=== PATIENT | female | born 1995 | race Caucasian/White ===

== ENCOUNTER 2022-10-20 09:42 | Outpatient (REF) | payer OTHER, SELFPAY ==
[2022-10-20 10:34] LABS: Hematocrit 41.1 % (37.0-47.0); Hemoglobin 13.7 g/dl (12.0-16.0); Mean Corpuscular HGB Conc 33.3 g/dl (31.0-35.0); Mean Corpuscular Hemoglobin 31.1 pg (27.0-33.0); Mean Corpuscular Volume 93.2 fL (80.0-98.0); Mean Platelet Volume 11.6 fL (9.4-12.3); Platelet Count 265 X10*3/uL (160-400); Red Blood Count 4.41 X10*6/uL (4.20-5.50); Red Cell Distribution Width 11.6 % (11.0-16.0); White Blood Count 6.1 X10*3/uL (4.8-10.8)
[2022-10-20 11:25] LABS: Alanine Aminotransferase 15 U/L (0-31); Albumin Level 4.4 g/dL (3.5-5.0); Alkaline Phosphatase 56 U/L (39-117); Anion Gap 11 (12-20); Aspartate Amino Transferase 20 U/L (5-31); Bilirubin Total 0.6 mg/dL (0.0-1.0); Blood Urea Nitrogen 10 mg/dL (9-16); Calcium 9.1 mg/dL (8.4-10.2); Carbon Dioxide 27 mmol/L (22-29); Chloride 106 mmol/L (96-108); Cholesterol 195 mg/dL; Estimated Glomerular Filt Rate > 60; Glucose Fasting 96 mg/dL (60-99); HDL Cholesterol 55 mg/dL; LDL Cholesterol Calculated 129 mg/dl; Potassium 4.6 mmol/L (3.3-5.1); Sodium 139 mmol/L (135-145); Total Protein 6.8 g/dL (6.5-8.0); Triglycerides 55 mg/dL
[2022-10-20 11:44] LABS: TSH reflex Free T4 1.04 uIU/mL (0.32-4.0)
== END 2022-10-20 09:43 | disposition home or self-care (01) ==
LOC: HO.LAB 09:42
PROVIDERS: PCP Hospitalist; Visit Provider Hospitalist
DX: Z00.00 Encounter for general adult medical examination without abnormal findings (principal); N92.0 Excessive and frequent menstruation with regular cycle; E66.3 Overweight; Z68.28 Body mass index [BMI] 28.0-28.9, adult; Z83.2 Family history of diseases of the blood and blood-forming organs and certain disorders involving the immune mechanism
CPT/HCPCS: 36415; 80053; 80061; 84443; 85027

== ENCOUNTER 2023-01-13 09:10 | Outpatient (REF) | payer OTHER, SELFPAY ==
[2023-01-13 15:25] LABS: CT PCR NOT DETECTED (Not Detect.); NG PCR NOT DETECTED (Not Detect.)
[2023-01-14 11:11] LABS: BV Int Neg Control Negative (Negative); BV Int Pos Control Positive (Positive)
== END 2023-01-13 09:11 | disposition home or self-care (01) ==
LOC: HO.LNP 09:10
PROVIDERS: PCP Hospitalist; Visit Provider Advanced Practice Midwife
DX: Z01.419 Encounter for gynecological examination (general) (routine) without abnormal findings (principal); Z20.2 Contact with and (suspected) exposure to infections with a predominantly sexual mode of transmission
CPT/HCPCS: 0353U; 87480; 87510; 87660; 88142

== ENCOUNTER 2023-09-13 08:29 | Outpatient (AMB) | payer OTHER, SELFPAY ==
[2023-09-13 08:37] VITALS: BP 120/72; PULSE 80; O2SAT 98; BMI 29.9
--- NOTE | 2023-09-13 08:37 | MHC.PC.OV ---
Vital Signs 09/13/23 08:37 Height 5 ft 5 in Weight 179 lb 8 oz BMI 29.9 BP 120/72 Blood Pressure Location Lt brachial Position Sitting Pulse 80 Pulse Source Pulse Oximeter Pulse Oximetry (%) 98 Oxygen Delivery Method Room Air Intake Visit Reasons: NURY from Kath Intake Note: Patient is here today for her physical. Allergies No Known Allergies Allergy (Verified 09/13/23 08:56) Medication List - Last Reconciled 09/13/23 by Angelica aPrada, [facility]- norgestimate-ethinyl estradiol 0.18/0.215/0.25 mg-35 mcg (28) (Tri-Estarylla) 1 tab PO DAILY Tobacco use date assessed: 09/13/23 Dental Screening Dental Screen Date: 09/13/23 Did you have a dental visit in the last 12 months?: Yes Did you have a dental problem in the last 6 months where you did not have access to dental care?: No Was dental information given to patient?: Patient has dentist HPI HPI Comments History of Present Illness Details 28-year-old female with PTSD, ? ADHD, JAIRO, lives w/ boyfriend. 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 q6 months Vision- no corrective lenses or issues Sleep - hard time staying asleep; tired a lot; not effecting QOL Diet: relatively well. Loves snacking. Exercise: walks dog QD, Gym 3-4 times/week Surgeries: None Specialist: Counselor Family hx: Dad - cardiac arrest 51, DM Paternal aunt - breast cancer dx around age 45. + BRCA Pt reports she was tested for this and was negative. PGF of cardiac arrest 47 PGM , DM, leukemia, smoker Siblings: Older brother 40 alive and well Sister 38 alive recovery from heroin, Hep c treated Brother 33 alive and well MGM 93, hypothyroid MGF unknown reason Mom healthy active, HTN Uncle - cirrhosis d/t etoh Uncle prostate CA alive PHQ and JAIRO are + relative to situational circumstances. Has counselor, feels well supported. Has never been on meds. 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 1. Little interest or pleasure in doing things: several days 2. Feeling down, depressed, or hopeless: several days 3. Trouble falling or staying asleep, or sleeping too much: several days 4. Feeling tired or having little energy: not at all 5. Poor appetite or overeating: not at all 6. Feeling bad about yourself - or that you are a failure or have let yourself or your family down: not at all 7. Trouble concentrating on things, such as reading the newspaper or watching television: nearly every day 8. Moving or speaking so slowly that other people could have noticed. Or the opposite - being so fidgety or restless that you have been moving around a lot more than usual: not at all 9. Thoughts that you would be better off or of hurting yourself in some way: not at all Total score: 6 Depression Screening Interpretation: Positive Depression Screening Done: Yes 93288 - PHQ-9 Billing: Yes Source: Developed by Drs. Ulysses Millan, Olga Lidia Cleveland, Todd Capellan and colleagues, with an educational rachel from [employer]. Thrive Questionnaire Date Thrive assessed: 09/13/23 I am a: Patient What is your living situation today?: I have a steady place to live Within the past 12 months, did the food you bought not last and you didn't have the money to get more?: Never true Within the past 12 months, did you worry whether your food would run out before you got money to buy more?: Never true Do you have trouble paying for medicines?: No Do you have trouble getting transportation to medical appointments?: No Do you have trouble paying your heating and electricity bill?: No Do you have trouble taking care of your child, family member or friend?: No Do you have trouble with day-to-day activities such as bathing, preparing meals, shopping, managing finances, etc.?: No Are you currently unemployed and looking for a job?: No Are you interested in more education?: No THRIVE Score: 0 AUDIT C Alcohol Use Questionnaire (AUDIT-C) 1. How often do you have a drink containing alcohol?: Monthly or less 2. How many drinks containing alcohol do you have on a typical day when you are drinking?: 1 or 2 3. How often do you have six or more drinks on one occasion?: Never Total Score: 1 Score Reviewed/Action Taken: Yes JAIRO-7 AMB Questionnaire JAIRO-7 Date JAIRO - 7 assessed: 09/13/23 Feeling nervous, anxious, or on edge: 1 = Several days Not being able to stop or control worryin = Several days Worrying too much about different things: 1 = Several days Trouble relaxin = Several days Being so restless that it is hard to sit still: 0 = Not at all Becoming easily annoyed or irritable: 0 = Not at all Feeling afraid as if something awful might happen: 0 = Not at all Total JAIRO-7 score (0-4 normal; 5-9 mild; 10-14 moderate; 15-21 severe): 4 Source: Developed by Drs. Ulysses Millan, Olga Lidia Cleveland, Todd Capellan and colleagues, with an educational rachel from [employer]. JAIRO-7 Assessment Billing JAIRO-7 Assessment Tool: JAIRO-7 Assessment 55898 Review of Systems Const Details: Constitutional: Denies fever. Skin: Denies rash. Eye: Denies eye pain. ENMT: Denies sore throat and nasal congestion. Respiratory: Denies shortness of breath and cough. Gastrointestinal: Denies nausea, vomiting or abdominal pain. Cardiovascular: Denies chest pain and syncope. Genitourinary: Denies dysuria. Musculoskeletal: Denies back pain and extremity pain. Neurologic: Denies headaches, confusion, and weakness. Psychiatric: Denies suicidal thoughts and substance abuse. Allergy/ Immunologic: Denies impaired immunity. Physical exam (Primary Care) Vital Signs: Last Vital Signs Pulse 80 09/13/23 08:37 BP 120/72 09/13/23 08:37 Pulse Ox 98 09/13/23 08:37 Oxygen Delivery Method Room Air 09/13/23 08:37 BMI result Body Mass Index 29.9 Tobacco/Smoking Status: Tobacco use Status Tobacco use date assessed 09/13/23 09/13/23 08:44 Patient Tobacco Use Status Never used Tobacco 09/13/23 08:44 e-Cigarette/Vaping Use Never Used 09/13/23 08:44 PHQ-9: PHQ-9 Score PHQ-9: Total score 6 09/13/23 08:47 Depression Screening Interpretation: Positive Thrive Assessment: Date of Thrive Assessment Date Thrive assessed 09/13/23 09/13/23 08:44 Const Other: General: Well developed, well nourished, in no acute distress. Appears stated age. Head: Normocephalic, atraumatic. Eyes: Pupils are equal, round and reactive to light and accommodation. Conjunctivae are clear. Vision grossly normal. Ears: TMs clear AU, EACS WNL Nose: Patent, without discharge. Mouth: There are no ulcers or lesions noted. No inflammation, no post nasal drip, no plaques nor exudates. Neck: Supple, no adenopathy or thyromegaly. Lungs: Clear to auscultation bilaterally. No rales, rhonchi or wheeze noted. Good air flow in all mathis. Heart: Regular rate and rhythm. No murmurs, click, rubs or gallops are noted. Abdomen: Bowel sounds present in all quadrants. The abdomen is soft, nontender, with no masses or organomegaly noted. No hernias are noted. Musculoskeletal: Joints are nontender, without swelling, redness, or effusions. Range of motion is observed to be normal. Pulses: Peripheral pulses are equal and palpable bilaterally. Extremities: No clubbing, cyanosis nor edema is noted. Neurologic: Gait and station normal. Cranial Nerves 2-12 intact. Motor strength grossly symmetrical and intact. No sensory loss. Balance normal. Skin: No rashes, ulcers, or lesions noted. Turgor is good. Skin color is good. Hair and nails are without abnormalities. Psych: Normal eye contact, affect and mood appropriate, and normal interactions. Patient is alert and appropriate to context. Extremities: No clubbing, cyanosis or edema. Assessment and Plan Assessment & Plan (1) Normal physical exam: Code(s): Z00.00 - Encounter for general adult medical examination without abnormal findings (2) Laboratory exam ordered as part of routine general medical examination: Code(s): Z00.00 - Encounter for general adult medical examination without abnormal findings Orders: Orders Lipid Panel Today Z00.00 - Encounter for general adult medical examination without abnormal findings TSH reflex Free T4 Today Z00.00 - Encounter for general adult medical examination without abnormal findings Comprehensive Farnam. Panel Fast Today Z00.00 - Encounter for general adult medical examination without abnormal findings Vitamin D 1,25 dihydroxy Today Z00.00 - Encounter for general adult medical examination without abnormal findings Patient Instructions: Health screenings for women ages 18 to 39 You should visit your health care provider from time to time, even if you are healthy. The purpose of these visits is to: Screen for medical issues Assess your risk for future medical problems Encourage a healthy lifestyle Update vaccinations and other preventive care services Help you get to know your provider in case of an illness Information Even if you feel fine, you should still see your provider for regular checkups. These visits can help you avoid problems in the future. For example, the only way to find out if you have high blood pressure is to have it checked regularly. High blood sugar and high cholesterol levels also may not have any symptoms in the early stages. A simple blood test can check for these conditions. There are specific times when you should see your provider or receive specific health screenings. The [place] Preventive Services Task Force publishes a list of recommended screenings. Below are screening guidelines for women ages 18 to 39. BLOOD PRESSURE SCREENING Your blood pressure should be checked at least once every 3 to 5 years if: Your blood pressure is in the normal range (top number less than 120 mm Hg and bottom number less than 80 mm Hg) You don't have risk factors for high blood pressure Ask your provider if you need your blood pressure checked more often if: The top number is 120 to 129 mm Hg or the bottom number is 70 to 79 mm Hg You have diabetes, heart disease, kidney problems, are overweight, or have certain other health conditions You have a first-degree relative with high blood pressure You are Black You had high blood pressure during a If the top number is 130 mm Hg or greater or the bottom number is 80 mm Hg or greater, this is considered stage 1 hypertension. Schedule an appointment with your provider to learn how you can reduce your blood pressure. Watch for blood pressure screenings in your area. Ask your provider if you can stop in to have your blood pressure checked. BREAST CANCER SCREENING Experts do not agree about the benefits of breast self-exams in finding breast cancer or saving lives. Talk to your provider about what is best for you. A screening mammogram is not recommended for most women under age 40. Your provider may discuss and recommend mammograms, MRI scans, or ultrasounds if you have an increased risk for breast cancer, such as: A mother or sister who had breast cancer at a young age (most often starting screening earlier than the age the close relative was diagnosed) You carry a high-risk genetic marker CERVICAL CANCER SCREENING Cervical cancer screening should start at age 21 years unless your provider advises otherwise. After the first test: Women ages 21 through 29 should have a Pap test every 3 years. Exoprts do not agree on whether HPV testing is recommended for this age group. Women ages 30 through 65 should be screened with either a Pap test every 3 years or the HPV test every 5 years or both tests every 5 years (called cotesting ). Women who have been treated for precancer (cervical dysplasia) should continue to have Pap tests for 20 years after treatment or until age 65, whichever is longer. If you have had your uterus and cervix removed (total hysterectomy), and you have not been diagnosed with cervical cancer or precancer (high grade cervical neoplasia), you do not need cervical cancer screening. CHOLESTEROL SCREENING Cholesterol screening should begin at: Age 45 for women with no known risk factors for coronary heart disease Age 20 for women with known risk factors for coronary heart disease Repeat cholesterol screening should take place: Every 5 years for women with normal cholesterol levels More often if changes occur in lifestyle (including weight gain and diet) More often if you have diabetes, heart disease, kidney problems, or certain other conditions DIABETES SCREENING You should be screened for diabetes starting at age 35 and then repeated every 3 years if you have no risk factors for diabetes. Screening may need to start earlier and be repeated more often if you have other risk factors for diabetes, such as: You have a first degree relative with diabetes. You are overweight or have obesity. You have high blood pressure, prediabetes, or a history of heart disease. Screening for diabetes should be done if you are planning to become and you are overweight and have other risk factors such as high blood pressure. DENTAL EXAM Go to the dentist once or twice every year for an exam and cleaning. Your dentist will evaluate if you need more frequent visits. EYE EXAM Have an eye exam every 5 to 10 years before age 40. If you have vision problems, have an eye exam every 2 years or more often if recommended by your provider. You should have an eye exam that includes an examination of your retina (back of your eye) at least every year if you have diabetes. IMMUNIZATIONS Commonly needed vaccines include: Flu shot: get one every year. COVID-19 vaccine: ask your provider what is best for you. Tetanus-diphtheria and acellular pertussis (Tdap) vaccine: have one at or after age 19 as one of your tetanus-diphtheria vaccines if you did not receive it as an adolescent. Tetanus-diphtheria: have a booster (or Tdap) every 10 years. Varicella vaccine: receive 2 doses if you never had chickenpox or the varicella vaccine. Hepatitis B vaccine: receive 2, 3, or 4 doses, depending on your exact circumstances. Measles, mumps, and rubella (MMR) vaccine: receive 1 to 2 doses if you are not already immune to MMR. Your provider can tell you if you are immune. Ask your provider about the human papillomavirus (HPV) vaccine if: You have not received the HPV vaccine in the past You have not completed the full vaccine series (you should catch up on this shot) Ask your provider if you should receive other immunizations if you have certain health problems that increase your risk for some diseases such as pneumonia. INFECTIOUS DISEASE SCREENING Women who are sexually active should be screened for chlamydia and gonorrhea up until age 25. Women 25 years and older should be screened for chlamydia and gonorrhea if at high risk. Screening for hepatitis C: All adults ages 18 to 79 should get a one-time test for hepatitis C. people should be screened at every . Screening for human immunodeficiency virus (HIV): All people ages 15 to 65 should get a one-time test for HIV. Depending on your lifestyle and medical history, you may also need to be screened for infections such as syphilis and HIV, as well as other infections. PHYSICAL EXAM All adults should visit their provider from time to time, even if they are healthy. The purpose of these visits is to: Screen for disease Assess your risk of future medical problems Encourage a healthy lifestyle Update your vaccinations and other preventive care services Maintain a relationship with a provider in case of an illness Your height, weight, and BMI should be checked at every exam. During your exam, your provider may ask you about: Depression and anxiety Diet and exercise Alcohol and tobacco use Safety issues, such as using seat belts, smoke detectors, and intimate partner violence Your medicines and risk for interactions SKIN SELF-EXAM Your provider may check your skin for signs of skin cancer, especially if you're at high risk, such as if you: Have had skin cancer before Have close relatives with skin cancer Have a weakened immune system OTHER SCREENING Talk with your provider about colon cancer screening if you have a strong family history of colon cancer or polyps, or if you have had inflammatory bowel disease or polyps yourself. Routine bone density screening of women under 40 is not recommended. Coding Level of Care Code Est Pt Prev Care 18-39y(98575) Diagnoses Normal physical exam Z00.00 Laboratory exam ordered as part of routine general medical examination Z00.00 Additional Codes JAIRO-7 Assessment Billing - JAIRO-7 Assessment Tool: JAIRO-7 Assessment 91576 ([id number])
== END 2023-09-13 09:16 | disposition home or self-care (01) ==
PROVIDERS: PCP Nurse Practitioner Family; Visit Provider Nurse Practitioner Family
DX: Z00.00 Encounter for general adult medical examination without abnormal findings (principal)
CPT/HCPCS: 99395

== ENCOUNTER 2023-12-21 09:25 | Outpatient (REF) | payer OTHER, SELFPAY ==
[2023-12-21 12:00] LABS: Alanine Aminotransferase 13 U/L (0-31); Albumin Level 4.1 g/dL (3.5-5.0); Alkaline Phosphatase 49 U/L (39-117); Anion Gap 12 (12-20); Aspartate Amino Transferase 17 U/L (5-31); Bilirubin Total 0.2 mg/dL (0.0-1.0); Blood Urea Nitrogen 12 mg/dL (9-16); Calcium 9.5 mg/dL (8.4-10.2); Carbon Dioxide 24 mmol/L (22-29); Chloride 109 mmol/L (96-108); Cholesterol 176 mg/dL (<200); Estimated Glomerular Filt Rate > 60; Glucose Fasting 100 mg/dL (60-99); HDL Cholesterol 54 mg/dL (>40); LDL Cholesterol Calculated 109 mg/dL (<100); Potassium 4.4 mmol/L (3.3-5.1); Sodium 141 mmol/L (135-145); Triglycerides 68 mg/dL (<150)
[2023-12-21 12:24] LABS: TSH reflex Free T4 1.06 uIU/mL (0.32-4.0)
[2023-12-25 13:38] LABS: VITAMIN D (1,25 OH) D3 69 pg/mL; Vit D (1,25-Dihydroxy) Total 69 pg/mL (18-72); Vitamin D (1,25 OH) D2 <8 pg/mL
== END 2023-12-21 09:26 | disposition home or self-care (01) ==
LOC: HO.WFDLDS 09:25
PROVIDERS: Visit Provider Nurse Practitioner Family
DX: Z00.00 Encounter for general adult medical examination without abnormal findings (principal)
CPT/HCPCS: 36415; 80053; 80061; 82652; 84443

== ENCOUNTER 2024-02-08 09:24 | Outpatient (REF) | payer OTHER, SELFPAY ==
[2024-02-09 05:58] LABS: CT PCR NOT DETECTED (Not Detect.); NG PCR NOT DETECTED (Not Detect.)
[2024-02-09 09:12] LABS: Bacterial Vaginosis PCR NEGATIVE (Negative); Candida Group PCR NOT DETECTED (Not Detect); Candida glab krusei PCR NOT DETECTED (Not Detect); Trichomonas vaginalis PCR NOT DETECTED (Not Detect)
== END 2024-02-08 09:25 | disposition home or self-care (01) ==
LOC: HO.LAB 09:24
PROVIDERS: PCP Nurse Practitioner Family; Visit Provider Advanced Practice Midwife
DX: Z01.419 Encounter for gynecological examination (general) (routine) without abnormal findings (principal); N89.8 Other specified noninflammatory disorders of vagina; Z80.3 Family history of malignant neoplasm of breast; Z20.2 Contact with and (suspected) exposure to infections with a predominantly sexual mode of transmission
CPT/HCPCS: 0352U; 87491; 87591

== ENCOUNTER 2024-02-08 09:24 | Outpatient (AMB) | payer OTHER, SELFPAY ==
[2024-02-08 09:27] VITALS: BP 110/62; BMI 30.4
--- NOTE | 2024-02-08 09:27 | MHC.OFFVIS ---
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 Manager Of Procurement Required: No Manager Of Procurement Services: Manager Of Procurement Present Information Interpreted: clinical only Chemical Processing Supervisor: Chemical Processing Supervisor Present Allergies No Known Allergies Allergy (Verified 02/08/24 09:28) Medication List - Last Reconciled 02/08/24 by Inés Fisher CNM norgestimate-ethinyl estradiol 0.18/0.215/0.25 mg-35 mcg (28) (Tri-Estarylla) 1 tab PO DAILY trazodone 50 mg PO BEDTIME PRN Is last menstrual period known: Yes Last menstrual period: 01/25/24 Do you need a note to return to daycare/school/sports/work: No HPI HPI 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 She is on control pills and plans to stay on them for least another year or so she and her fiance her in their house and planning on getting next year and soon after will start their family she has no other health concerns she is working on being as healthy as she can be she met her new primary care provider and has no concerns and recently got full blood work done she still does not smoke or have any unhealthy habits. She has not worried about STDs but after they were offered she did accept vaginal infection screens. She has no symptoms of anything whatsoever. In reviewing her past menstrual history she started her periods very young age 11 or 12 and was bleeding very heavily and lost a lot of blood but them so was put on control pills early and was on them for many years took a break around her 21 for year so and then resume them again. When she was off the pills she cited her periods as being regular coming about every 30 days and lasting 4 days. 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 Cognitive needs: No Hearing needs: No Vision needs: No Female Reproductive History Menstrual Age of Menarche: 11 Duration of menses: 3-5 days Date of last menstrual period: 01/25/24 control method: pills Total pregnancies: 0 Date of last pap smear: 01/17/23 (neg) History of abnormal pap smear: Yes (unsure date, it was a couple of Pap smears ago and it did not require biops) Physical Exam Vital Signs: Last Vital Signs BP 110/62 02/08/24 09:27 BMI result Body Mass Index 30.4 Assessment & Plan Assessment & Plan (1) Counseling for control, oral contraceptives: Code(s): Z30.09 - Encounter for other general counseling and advice on contraception Category: Medical (2) Family history of breast cancer in female: Comment: (?paternal?) Aunt has breast cancer and is BRCA positive. She, her mother and sisters have been screened and are BRCA negative. Code(s): Z80.3 - Family history of malignant neoplasm of breast Category: Medical (3) Screen for sexually transmitted diseases: Code(s): Z11.3 - Encounter for screening for infections with a predominantly sexual mode of transmission Category: Medical (4) Cervical cancer screening: Comment: Patient states she had abnormal cells a couple of years ago- no specifics; 01/13/2023 Pap is negative. Code(s): Z12.4 - Encounter for screening for malignant neoplasm of cervix Category: Medical (5) Well woman exam with routine gynecological exam: Code(s): Z01.419 - Encounter for gynecological examination (general) (routine) without abnormal findings Category: Medical Plan -----Discussed in this visit the following: healthy balanced diet, regular and consistent exercise, getting recommended health screens, doing the best she can for her particular health concerns, kegel exercises, pap smear screening and followup recommendations, mammography screening and SBE, normal changes in cycles in her life stage--- .---I discussed with pt some of the optimal strategies for planning a , including achieving the best health she can before , including heathy balanced diet, exercise, wt loss to ideal BMI if appropriate, avoiding toxic substances and medications, not smoking, and taking a multivitamin w folic acid daily. Any specific health concerns should be managed before seeking pregancy, including emotional and relationship and support readiness before embarking on , including being in the best possible health beforehand.. In addition I reviewed normal cycles, fertility awareness and signs of ovulation, and stopping the control pills when she and her fiance are ready to start trying to get and achieve when she feel ready. For now she is going to continue on the control pills and I renewed them for another year. We will see her next year. She is a long-term pill use her and aware of any concerns Also. discussed options care and I do recommend that when she does get that she initiate care from the start with what ever group she intends to stay with to establish a relationship and be able to feel comfortable asking all her questions and discussed birthing plans etc. she lives in [place] so her options most likely would include [facility] in [place] and [facility]. it would be quite a drive to get to the other facilities. Medications: Refilled norgestimate-ethinyl estradiol 0.18/0.215/0.25 mg-35 mcg (28) (Tri-Estarylla) 1 tab PO DAILY 84 tabs 4RF Coding Level of Care Code Est Pt Prev Care 18-39y(13306) Diagnoses Counseling for control, oral contraceptives Z30.09 Family history of breast cancer in female Z80.3 Screen for sexually transmitted diseases Z11.3 Cervical cancer screening Z12.4 Well woman exam with routine gynecological exam Z01.419
== END 2024-02-08 10:03 | disposition home or self-care (01) ==
LOC: HO.HWSM 09:24
PROVIDERS: PCP Nurse Practitioner Family; Visit Provider Advanced Practice Midwife
DX: Z01.419 Encounter for gynecological examination (general) (routine) without abnormal findings (principal); Z30.09 Encounter for other general counseling and advice on contraception; Z80.3 Family history of malignant neoplasm of breast
CPT/HCPCS: 99395

== ENCOUNTER 2024-09-17 07:55 | Outpatient (AMB) | payer OTHER, SELFPAY ==
[2024-09-17 08:08] VITALS: BP 110/70; PULSE 80; RESP 16; TEMP 36.6; O2SAT 98; BMI 29.6
--- NOTE | 2024-09-17 08:08 | MHC.PC.OV ---
Vital Signs 09/17/24 08:08 Height 5 ft 5 in Weight 178 lb BMI 29.6 BP 110/70 Blood Pressure Location Rt brachial Position Sitting Respiration 16 Pulse 80 Pulse Source Pulse Oximeter Temp 97.9 F Temp Source Oral Pulse Oximetry (%) 98 Intake Visit Reasons: CPE Allergies No Known Allergies Allergy (Verified 09/17/24 08:12) Medication List - Last Reconciled 09/17/24 by Angelica Parada, [facility]- norgestimate-ethinyl estradiol 0.18/0.215/0.25 mg-35 mcg (28) (Tri-Estarylla) 1 tab PO DAILY propranolol 20 mg PO DAILY trazodone 50 mg PO BEDTIME PRN Tobacco use date assessed: 09/17/24 Dental Screening Dental Screen Date: 09/17/24 Did you have a dental visit in the last 12 months?: Yes Did you have a dental problem in the last 6 months where you did not have access to dental care?: No Was dental information given to patient?: Patient has dentist HPI HPI Comments History of Present Illness Details 29-year-old female with PTSD, ? 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 Health maintenance Pap smear 01/13/2023 within normal limits 02/2024 Vaccines: Flu shot, Tdap in last 10 year Dentist - q6 months Vision- no corrective lenses or issues Sleep - hard time staying asleep; tired a lot; not effecting QOL Diet: normal Exercise: walks dog QD, Gym 3-4 times/week Surgeries: None Specialist: Counselor Family hx: Dad - cardiac arrest 51, DM, melanoma Paternal aunt - breast cancer dx around age 45. + BRCA Pt reports she was tested for this and was negative. PGF of cardiac arrest 47 PGM , DM, leukemia, smoker Siblings: Older brother 40 alive and well Sister 38 alive recovery from heroin, Hep c treated Brother 35 high risk cardiac markers MGM 93, hypothyroid MGF unknown reason Mom healthy active, HTN Uncle - cirrhosis d/t etoh Uncle prostate CA alive PHQ and JAIRO are + relative to situational circumstances. Has counselor, feels well supported. On trazadone; new Rx propranolol not taking @ this time. 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 1. Little interest or pleasure in doing things: several days 2. Feeling down, depressed, or hopeless: several days 3. Trouble falling or staying asleep, or sleeping too much: several days 4. Feeling tired or having little energy: several days 5. Poor appetite or overeating: not at all 6. Feeling bad about yourself - or that you are a failure or have let yourself or your family down: not at all 7. Trouble concentrating on things, such as reading the newspaper or watching television: several days 8. Moving or speaking so slowly that other people could have noticed. Or the opposite - being so fidgety or restless that you have been moving around a lot more than usual: not at all 9. Thoughts that you would be better off or of hurting yourself in some way: not at all Total score: 5 Depression Screening Interpretation: Negative Depression Screening Done: Yes 61246 - PHQ-9 Billing: Yes Source: Developed by Drs. Ulysses Millna, Olga Lidia Cleveland, Todd Capellan and colleagues, with an educational rachel from [employer]. Thrive Questionnaire Date Thrive assessed: 09/17/24 I am a: Patient What is your living situation today?: I have a steady place to live Within the past 12 months, did the food you bought not last and you didn't have the money to get more?: Never true Within the past 12 months, did you worry whether your food would run out before you got money to buy more?: Never true Do you have trouble paying for medicines?: No Do you have trouble getting transportation to medical appointments?: No Do you have trouble paying your heating and electricity bill?: No Do you have trouble taking care of your child, family member or friend?: No Do you have trouble with day-to-day activities such as bathing, preparing meals, shopping, managing finances, etc.?: No Are you currently unemployed and looking for a job?: No Are you interested in more education?: No Please select the resources that you would like help with: None Currently or been in a relationship where the following occur: No concerns reported THRIVE Score: 0 AUDIT C Alcohol Use Questionnaire (AUDIT-C) 1. How often do you have a drink containing alcohol?: 2-4 times a month 2. How many drinks containing alcohol do you have on a typical day when you are drinking?: 1 or 2 3. How often do you have six or more drinks on one occasion?: Less than monthly Total Score: 3 Score Reviewed/Action Taken: Yes JAIRO-7 AMB Questionnaire JAIRO-7 Date JAIRO - 7 assessed: 09/17/24 Feeling nervous, anxious, or on edge: 1 = Several days Not being able to stop or control worryin = Several days Worrying too much about different things: 1 = Several days Trouble relaxin = Not at all Being so restless that it is hard to sit still: 0 = Not at all Becoming easily annoyed or irritable: 0 = Not at all Feeling afraid as if something awful might happen: 1 = Several days Total JAIRO-7 score (0-4 normal; 5-9 mild; 10-14 moderate; 15-21 severe): 4 Source: Developed by Drs. Ulysses Millan, Olga Lidia Cleveland, Todd Capellan and colleagues, with an educational rachel from [employer]. JAIRO-7 Assessment Billing JAIRO-7 Assessment Tool: JAIRO-7 Assessment 64682 Physical exam (Primary Care) Vital Signs: Last Vital Signs Temp 97.9 F 09/17/24 08:08 Pulse 80 09/17/24 08:08 Resp 16 09/17/24 08:08 BP 110/70 09/17/24 08:08 Pulse Ox 98 09/17/24 08:08 BMI result Body Mass Index 29.6 Tobacco/Smoking Status: Tobacco use Status Tobacco use date assessed 09/13/23 09/13/23 08:44 Patient Tobacco Use Status Never used Tobacco 09/13/23 08:44 e-Cigarette/Vaping Use Never Used 09/13/23 08:44 Depression Screening Interpretation: Negative Thrive Assessment: Date of Thrive Assessment Date Thrive assessed 09/13/23 09/13/23 08:44 Currently or been in a relationship where the following occur: No concerns reported Const Other: General: Well developed, well nourished, in no acute distress. Appears stated age. Head: Normocephalic, atraumatic. Eyes: Pupils are equal, round and reactive to light and accommodation. Conjunctivae are clear. Vision grossly normal. Ears: TMs clear AU, EACS WNL Nose: Patent, without discharge. Mouth: There are no ulcers or lesions noted. No inflammation, no post nasal drip, no plaques nor exudates. Neck: Supple, no adenopathy or thyromegaly. Lungs: Clear to auscultation bilaterally. No rales, rhonchi or wheeze noted. Good air flow in all mathis. Heart: Regular rate and rhythm. No murmurs, click, rubs or gallops are noted. Abdomen: Bowel sounds present in all quadrants. The abdomen is soft, nontender, with no masses or organomegaly noted. No hernias are noted. Musculoskeletal: Joints are nontender, without swelling, redness, or effusions. Range of motion is observed to be normal. Pulses: Peripheral pulses are equal and palpable bilaterally. Extremities: No clubbing, cyanosis nor edema is noted. Neurologic: Gait and station normal. Cranial Nerves 2-12 intact. Motor strength grossly symmetrical and intact. No sensory loss. Balance normal. Skin: No rashes, ulcers, or lesions noted. Turgor is good. Skin color is good. Hair and nails are without abnormalities. Psych: Normal eye contact, affect and mood appropriate, and normal interactions. Patient is alert and appropriate to context. Coding Level of Care Code Est Pt Prev Care 18-39y([id number]) Diagnoses Normal physical exam Z00.00 Laboratory exam ordered as part of routine general medical examination Z00.00 Family history of breast cancer in female Z80.3 Mild episode of recurrent major depressive disorder F33.0 Major depression episode severity: mild JAIRO (generalized anxiety disorder) F41.1 Family history of cardiac arrest Z82.49 Family history of skin cancer Z80.8 Additional Codes JAIRO-7 Assessment Billing - JAIRO-7 Assessment Tool: JAIRO-7 Assessment 32076 ([id number]) PHQ-9 - 79947 - PHQ-9 Billing: Yes ([id number]) Assessment & Plan Assessment & Plan (1) Normal physical exam: Code(s): Z00.00 - Encounter for general adult medical examination without abnormal findings Category: Medical (2) Laboratory exam ordered as part of routine general medical examination: Code(s): Z00.00 - Encounter for general adult medical examination without abnormal findings Category: Medical (3) Family history of breast cancer in female: Comment: (?paternal?) Aunt has breast cancer and is BRCA positive. She, her mother and sisters have been screened and are BRCA negative. Code(s): Z80.3 - Family history of malignant neoplasm of breast Category: Medical (4) MDD (major depressive disorder), recurrent episode: Code(s): F33.9 - Major depressive disorder, recurrent, unspecified Category: Medical Qualifiers: Major depression episode severity: mild Qualified Code(s): F33.0 - Major depressive disorder, recurrent, mild (5) JAIRO (generalized anxiety disorder): Code(s): F41.1 - Generalized anxiety disorder Category: Medical (6) Family history of cardiac arrest: Comment: dad and grandfather Code(s): Z82.49 - Family history of ischemic heart disease and other diseases of the circulatory system Category: Medical (7) Family history of skin cancer: Comment: dad with melanoma Code(s): Z80.8 - Family history of malignant neoplasm of other organs or systems Category: Medical Plan . Orders: Orders Apolipoprotein A1 Today F33.9 - Major depressive disorder, recurrent, unspecified, F41.1 - Generalized anxiety disorder, Z00.00 - Encounter for general adult medical examination without abnormal findings, Z82.49 - Family history of ischemic heart disease and other diseases of the circulatory system Apolipoprotein B Today F33.9 - Major depressive disorder, recurrent, unspecified, F41.1 - Generalized anxiety disorder, Z00.00 - Encounter for general adult medical examination without abnormal findings, Z82.49 - Family history of ischemic heart disease and other diseases of the circulatory system Complete Blood Count no Diff Today F33.9 - Major depressive disorder, recurrent, unspecified, F41.1 - Generalized anxiety disorder, Z00.00 - Encounter for general adult medical examination without abnormal findings, Z82.49 - Family history of ischemic heart disease and other diseases of the circulatory system Comprehensive Met. Panel Today F33.9 - Major depressive disorder, recurrent, unspecified, F41.1 - Generalized anxiety disorder, Z00.00 - Encounter for general adult medical examination without abnormal findings, Z82.49 - Family history of ischemic heart disease and other diseases of the circulatory system TSH reflex Free T4 Today F33.9 - Major depressive disorder, recurrent, unspecified, F41.1 - Generalized anxiety disorder, Z00.00 - Encounter for general adult medical examination without abnormal findings, Z82.49 - Family history of ischemic heart disease and other diseases of the circulatory system Hemoglobin A1c Today F33.9 - Major depressive disorder, recurrent, unspecified, F41.1 - Generalized anxiety disorder, Z00.00 - Encounter for general adult medical examination without abnormal findings, Z82.49 - Family history of ischemic heart disease and other diseases of the circulatory system Lipid Panel Today F33.9 - Major depressive disorder, recurrent, unspecified, F41.1 - Generalized anxiety disorder, Z00.00 - Encounter for general adult medical examination without abnormal findings, Z82.49 - Family history of ischemic heart disease and other diseases of the circulatory system Microalbumin, Random (w Creat) Today F33.9 - Major depressive disorder, recurrent, unspecified, F41.1 - Generalized anxiety disorder, Z00.00 - Encounter for general adult medical examination without abnormal findings, Z82.49 - Family history of ischemic heart disease and other diseases of the circulatory system Vitamin B12 and Folate Today F33.9 - Major depressive disorder, recurrent, unspecified, F41.1 - Generalized anxiety disorder, Z00.00 - Encounter for general adult medical examination without abnormal findings, Z82.49 - Family history of ischemic heart disease and other diseases of the circulatory system Vitamin D 25-OH Total Today F33.9 - Major depressive disorder, recurrent, unspecified, F41.1 - Generalized anxiety disorder, Z00.00 - Encounter for general adult medical examination without abnormal findings, Z82.49 - Family history of ischemic heart disease and other diseases of the circulatory system Referrals Cardiology Referral Z82.49 - Family history of ischemic heart disease and other diseases of the circulatory system Patient Instructions: Health screenings for women You should visit your health care provider from time to time, even if you are healthy. The purpose of these visits is to: Screen for medical issues Assess your risk for future medical problems Encourage a healthy lifestyle Update vaccinations and other preventive care services Help you get to know your provider in case of an illness Information Even if you feel fine, you should still see your provider for regular checkups. These visits can help you avoid problems in the future. For example, the only way to find out if you have high blood pressure is to have it checked regularly. High blood sugar and high cholesterol levels also may not have any symptoms in the early stages. A simple blood test can check for these conditions. There are specific times when you should see your provider or receive specific health screenings. The [place] Preventive Services Task Force publishes a list of recommended screenings. Below are screening guidelines for women ages 18 to 39. BLOOD PRESSURE SCREENING Your blood pressure should be checked at least once every 3 to 5 years if: Your blood pressure is in the normal range (top number less than 120 mm Hg and bottom number less than 80 mm Hg) You don't have risk factors for high blood pressure Ask your provider if you need your blood pressure checked more often if: The top number is 120 to 129 mm Hg or the bottom number is 70 to 79 mm Hg You have diabetes, heart disease, kidney problems, are overweight, or have certain other health conditions You have a first-degree relative with high blood pressure You are Black You had high blood pressure during a If the top number is 130 mm Hg or greater or the bottom number is 80 mm Hg or greater, this is considered stage 1 hypertension. Schedule an appointment with your provider to learn how you can reduce your blood pressure. Watch for blood pressure screenings in your area. Ask your provider if you can stop in to have your blood pressure checked. BREAST CANCER SCREENING Experts do not agree about the benefits of breast self-exams in finding breast cancer or saving lives. Talk to your provider about what is best for you. A screening mammogram is not recommended for most women under age 40. Your provider may discuss and recommend mammograms, MRI scans, or ultrasounds if you have an increased risk for breast cancer, such as: A mother or sister who had breast cancer at a young age (most often starting screening earlier than the age the close relative was diagnosed) You carry a high-risk genetic marker CERVICAL CANCER SCREENING Cervical cancer screening should start at age 21 years unless your provider advises otherwise. After the first test: Women ages 21 through 29 should have a Pap test every 3 years. Exoprts do not agree on whether HPV testing is recommended for this age group. Women ages 30 through 65 should be screened with either a Pap test every 3 years or the HPV test every 5 years or both tests every 5 years (called cotesting ). Women who have been treated for precancer (cervical dysplasia) should continue to have Pap tests for 20 years after treatment or until age 65, whichever is longer. If you have had your uterus and cervix removed (total hysterectomy), and you have not been diagnosed with cervical cancer or precancer (high grade cervical neoplasia), you do not need cervical cancer screening. CHOLESTEROL SCREENING Cholesterol screening should begin at: Age 45 for women with no known risk factors for coronary heart disease Age 20 for women with known risk factors for coronary heart disease Repeat cholesterol screening should take place: Every 5 years for women with normal cholesterol levels More often if changes occur in lifestyle (including weight gain and diet) More often if you have diabetes, heart disease, kidney problems, or certain other conditions DIABETES SCREENING You should be screened for diabetes starting at age 35 and then repeated every 3 years if you have no risk factors for diabetes. Screening may need to start earlier and be repeated more often if you have other risk factors for diabetes, such as: You have a first degree relative with diabetes. You are overweight or have obesity. You have high blood pressure, prediabetes, or a history of heart disease. Screening for diabetes should be done if you are planning to become and you are overweight and have other risk factors such as high blood pressure. DENTAL EXAM Go to the dentist once or twice every year for an exam and cleaning. Your dentist will evaluate if you need more frequent visits. EYE EXAM Have an eye exam every 5 to 10 years before age 40. If you have vision problems, have an eye exam every 2 years or more often if recommended by your provider. You should have an eye exam that includes an examination of your retina (back of your eye) at least every year if you have diabetes. IMMUNIZATIONS Commonly needed vaccines include: Flu shot: get one every year. COVID-19 vaccine: ask your provider what is best for you. Tetanus-diphtheria and acellular pertussis (Tdap) vaccine: have one at or after age 19 as one of your tetanus-diphtheria vaccines if you did not receive it as an adolescent. Tetanus-diphtheria: have a booster (or Tdap) every 10 years. Varicella vaccine: receive 2 doses if you never had chickenpox or the varicella vaccine. Hepatitis B vaccine: receive 2, 3, or 4 doses, depending on your exact circumstances. Measles, mumps, and rubella (MMR) vaccine: receive 1 to 2 doses if you are not already immune to MMR. Your provider can tell you if you are immune. Ask your provider about the human papillomavirus (HPV) vaccine if: You have not received the HPV vaccine in the past You have not completed the full vaccine series (you should catch up on this shot) Ask your provider if you should receive other immunizations if you have certain health problems that increase your risk for some diseases such as pneumonia. INFECTIOUS DISEASE SCREENING Women who are sexually active should be screened for chlamydia and gonorrhea up until age 25. Women 25 years and older should be screened for chlamydia and gonorrhea if at high risk. Screening for hepatitis C: All adults ages 18 to 79 should get a one-time test for hepatitis C. people should be screened at every . Screening for human immunodeficiency virus (HIV): All people ages 15 to 65 should get a one-time test for HIV. Depending on your lifestyle and medical history, you may also need to be screened for infections such as syphilis and HIV, as well as other infections. PHYSICAL EXAM All adults should visit their provider from time to time, even if they are healthy. The purpose of these visits is to: Screen for disease Assess your risk of future medical problems Encourage a healthy lifestyle Update your vaccinations and other preventive care services Maintain a relationship with a provider in case of an illness Your height, weight, and BMI should be checked at every exam. During your exam, your provider may ask you about: Depression and anxiety Diet and exercise Alcohol and tobacco use Safety issues, such as using seat belts, smoke detectors, and intimate partner violence Your medicines and risk for interactions SKIN SELF-EXAM Your provider may check your skin for signs of skin cancer, especially if you're at high risk, such as if you: Have had skin cancer before Have close relatives with skin cancer Have a weakened immune system OTHER SCREENING Talk with your provider about colon cancer screening if you have a strong family history of colon cancer or polyps, or if you have had inflammatory bowel disease or polyps yourself. Routine bone density screening of women under 40 is not recommended.
== END 2024-09-17 08:28 | disposition home or self-care (01) ==
PROVIDERS: PCP Nurse Practitioner Family; Visit Provider Nurse Practitioner Family
DX: Z00.00 Encounter for general adult medical examination without abnormal findings (principal); Z80.3 Family history of malignant neoplasm of breast; F33.0 Major depressive disorder, recurrent, mild; F41.1 Generalized anxiety disorder; Z82.49 Family history of ischemic heart disease and other diseases of the circulatory system; Z80.8 Family history of malignant neoplasm of other organs or systems

== ENCOUNTER → 2024-09-17 07:55 | Outpatient (BNVA) | payer OTHER, SELFPAY | PROVIDERS: PCP Nurse Practitioner Family; Visit Provider Nurse Practitioner Family | DX: Z00.00 Encounter for general adult medical examination without abnormal findings (principal); F33.0 Major depressive disorder, recurrent, mild; F41.1 Generalized anxiety disorder; Z82.49 Family history of ischemic heart disease and other diseases of the circulatory system; Z80.3 Family history of malignant neoplasm of breast; Z80.8 Family history of malignant neoplasm of other organs or systems | CPT/HCPCS: 96127 ==

== ENCOUNTER 2025-07-02 13:56 | Outpatient (REF) | payer OTHER, SELFPAY ==
[2025-07-02 15:13] LABS: Hematocrit 39.8 % (37.0-47.0); Hemoglobin 13.5 g/dl (12.0-16.0); Mean Corpuscular HGB Conc 33.9 g/dl (31.0-35.0); Mean Corpuscular Hemoglobin 31.6 pg (27.0-33.0); Mean Corpuscular Volume 93.2 fL (80.0-98.0); NRBC Abs Auto 0.000 X10*3/uL (0.0-0.012); NRBC Pct Auto 0.0 /100WBC (0.0-0.2); Platelet Count 257 X10*3/uL (160-400); Red Blood Count 4.27 X10*6/uL (4.20-5.50); White Blood Count 7.7 X10*3/uL (4.8-10.8)
[2025-07-02 15:33] LABS: Alanine Aminotransferase 28 U/L (0-31); Albumin Level 4.7 g/dL (3.5-5.0); Alkaline Phosphatase 64 U/L (39-117); Anion Gap 10 (12-20); Aspartate Amino Transferase 28 U/L (5-31); Blood Urea Nitrogen 10 mg/dL (9-16); Calcium 9.2 mg/dL (8.4-10.2); Carbon Dioxide 28 mmol/L (22-29); Chloride 107 mmol/L (96-108); Cholesterol 190 mg/dL (<200); Estimated Glomerular Filt Rate > 60; HDL Cholesterol 63 mg/dL (>40); Potassium 4.0 mmol/L (3.3-5.1); Sodium 141 mmol/L (135-145); Total Protein 6.9 g/dL (6.5-8.0); Triglycerides 37 mg/dL (<150)
[2025-07-02 15:40] LABS: Cholesterol 192 mg/dL (<200); HDL Cholesterol 67 mg/dL (>40); Triglycerides 35 mg/dL (<150)
[2025-07-02 16:09] LABS: Folate 10.5 ng/mL (> or = 4.0); Vitamin B12 338 pg/mL (200-900)
== END 2025-07-02 13:57 | disposition home or self-care (01) ==
LOC: HO.LAB 13:56
PROVIDERS: PCP Nurse Practitioner Family; Visit Provider Internal Medicine
DX: Z00.00 Encounter for general adult medical examination without abnormal findings (principal); Z82.49 Family history of ischemic heart disease and other diseases of the circulatory system; E78.00 Pure hypercholesterolemia, unspecified; I25.10 Atherosclerotic heart disease of native coronary artery without angina pectoris; I42.9 Cardiomyopathy, unspecified; F41.1 Generalized anxiety disorder; F33.9 Major depressive disorder, recurrent, unspecified; Z13.1 Encounter for screening for diabetes mellitus; Z13.21 Encounter for screening for nutritional disorder
CPT/HCPCS: 36415; 80053; 80061; 82172; 82306; 82570; 82607; 82746; 83036; 83695; 84443; 85027; 86141; 93005

== ENCOUNTER 2025-07-02 13:56 | Outpatient (AMB) | payer OTHER, SELFPAY ==
--- NOTE | 2025-07-02 13:59 | MHC.OFFVIS ---
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 The patient's father at age 53 from what an autopsy confirmed was a massive heart attack. It is believed the father also had undiagnosed diabetes, given symptoms of low energy and neuropathy in his feet. Additionally, the patient's mother and two brothers have high cholesterol. The patient has a personal history of high cholesterol, but recent levels are reported as not bad. The patient reports being generally healthy, maintaining regular exercise by walking, and having no major health concerns. The patient smokes marijuana recreationally and drinks alcohol occasionally. The patient's psychiatric history includes anxiety and ADHD, for which the patient takes medications. The patient was prescribed propranolol by an online provider but elected not to take it. Past medical evaluations include blood work from November of this year during an ER visit for a stomach bug, which showed normal liver function, kidney function, and CBC. An in-office EKG was normal. 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 Cognitive needs: No Hearing needs: No Vision needs: No Female Reproductive History Menstrual Age of Menarche: 11 Review of Systems Const Denies chills, Denies fatigue, Denies fever(s), Denies frequent falls, Denies weakness, Denies weight gain and Denies weight loss ENT Denies dizziness Card Denies chest pain, Denies leg edema, Denies lightheadedness, Denies palpitations, Denies dyspnea, Denies dyspnea on exertion and Denies orthopnea Resp Denies cough, Denies dyspnea and Denies dyspnea on exertion GI Denies bloating and Denies change in bowel habits Musc Denies muscle weakness, Denies numbness and Denies tingling Neuro Denies dizziness, Denies frequent falls, Denies numbness, Denies tingling and Denies weakness Endo Denies fatigue and Denies palpitations Physical Exam Vital Signs: Last Vital Signs Pulse 71 07/02/25 14:01 BP 110/70 07/02/25 14:01 BMI result Body Mass Index 26.0 Const General: comfortable and no acute distress Orientation/consciousness: patient oriented x3 HEENT Other: Unremarkable Head: Yes normal to inspection Neck Neck: Yes normal visual inspection Chest Chest palpation & inspection: normal inspection of the chest Resp Auscultation: clear to auscultation bilaterally Cardio Palpation: normal PMI Heart sounds: S1 normal heart sound present, S2 normal heart sound present, no gallops, no murmurs and no rubs GI Palpation (GI): Soft to palpation Back/Spine/Pelvis Other: unremarkable Skin General skin exam: no rashes or lesions noted Neuro General: patient oriented x3 Extrem General: Yes normal to inspection Psych Mental Status: mental status grossly normal Office Procedures EKG Details: EKG with underlying sinus rhythm at 71/Min; no ischemic changes; [place] [id number], Complete Assessment & Plan Assessment & Plan (1) Family history of cardiac arrest: Comment: dad and grandfather Code(s): Z82.49 - Family history of ischemic heart disease and other diseases of the circulatory system Category: Medical Plan 1. Cardiovascular Risk Assessment The patient is a young individual with a strong family history of premature cardiovascular disease and hypercholesterolemia. However, the patient's personal risk is low given the absence of traditional risk factors such as diabetes or being overweight, a normal EKG, and a healthy lifestyle. The probability of a significant cardiac issue at this age is very low. The plan is to perform further risk stratification. Plan: An advanced lipid panel, including Lipoprotein(a), CRP, and Apolipoprotein B, will be ordered. An echocardiogram will also be ordered for baseline assessment and to rule out structural abnormalities like cardiomyopathy, though the suspicion for pathology is very low. Statin therapy is not indicated at this time. In the baseline EKG, there is no evidence of any long QT syndrome, Brugada or preexcitation. 2. Hypercholesterolemia The patient has a personal and family history of high cholesterol, though the patient's recent labs from last year were acceptable. A new lipid panel will be ordered as part of the workup. Orders: Orders Lipid Panel Today E78.5 - Hyperlipidemia, unspecified CRP High Sensitivity Today E78.5 - Hyperlipidemia, unspecified Apolipoprotein B Today E78.5 - Hyperlipidemia, unspecified Lipoprotein A Today I25.10 - Atherosclerotic heart disease of [place] coronary artery without angina pectoris CA echo transthoracic complete Today I42.9 - Cardiomyopathy, unspecified, Z82.49 - Family history of ischemic heart disease and other diseases of the circulatory system Liver Panel Today I25.10 - Atherosclerotic heart disease of [place] coronary artery without angina pectoris, Z82.49 - Family history of ischemic heart disease and other diseases of the circulatory system Coding Level of Care Code New Pt Level 3 (94667) Diagnoses Family history of cardiac arrest Z82.49 CPT Codes EKG - CPT: 88431-[id number], Complete ([id number])
[2025-07-02 14:01] VITALS: BP 110/70; PULSE 71; BMI 26.0
--- OUTSIDE RECORDS SUMMARY | 2025-07-02 17:50 | XMS_ITS | Clinical Summary ---
Author Organization [facility] Address [address] [place] [address] Care Team Providers Care Line Dancer Name Role Phone Unavailable Primary Care Provider Unavailabl e Allergies No known active allergies Medications Medication Sig Dispensed Refills Start Date End Date Status ibuprofen (ADVIL,MOTRIN) 600 MG tablet Take 1 tablet (600 mg total) by mouth every 6 (six) hours as needed for pain. 30 tablet 0 01/15/2020 Active ondansetron (ZOFRAN-ODT) 4 MG disintegrating tablet Take 1 tablet (4 mg total) by mouth every 8 (eight) hours as needed. 12 tablet 0 01/15/2020 Active Active Problems No known active problems Social History Tobacco Use Types Packs/Day Years Used Date Smoking Tobacco: Never Smokeless Tobacco: Never Alcohol Use Standard Drinks/Week Comments Yes 0 (1 standard drink = 0.6 oz pur e alcohol) social Sex and Gender Information Value Date Recorded Sex Assigned at Female 01/15/2020 8:27 AM EDT Gender Identity Not on file Sexual Orientation Not on file Last Filed Vital Signs Vital Sign Reading Time Taken Comments Blood Pressure 110/56 01/15/2020 10:40 AM EDT Pulse 64 01/15/2020 10:40 AM EDT Temperature 36.5 C (97.7 F) 01/15/2020 10:40 AM EDT Respiratory Rate 19 01/15/2020 10:40 AM EDT Oxygen Saturation 97% 01/15/2020 10:40 AM EDT Inhaled Oxygen Concentration - - Weight 68 kg (150 lb) 01/15/2020 8:12 AM EDT Height 165.1 cm (5' 5 ) 01/15/2020 8:12 AM EDT Body Mass Index 24.96 01/15/2020 8:12 AM EDT Plan of Treatment Health Maintenance Due Date Last Done Comments Hepatitis B Vaccines (1 of 3 - 3-dose series) 1996 Hepatitis C Screening 1996 COVID-19 Vaccine (#1) 1996 Depression Screening 2008 Preventative Health Evaluation 2014 DTap / Tdap / Td (1 - Tdap) 2015 Cervical Cancer Screening (P ap Smear) 2017 Influenza Vaccine (#1) 2025 Pneumococcal Vaccine Aged Out No long er eligible based on patient's age to complete this topic RSV Ped < 20 months Aged Out No longe r eligible based on patient's age to complete this topic
--- OUTSIDE RECORDS SUMMARY | 2025-07-02 17:50 | XMS_ITS | Clinical Summary ---
Author Organization [facility] Address [address] [place] [address] Care Team Providers Care Director Of Restaurant Operations Name Role Phone Unavailable Primary Care Provider Unavailabl e Social History Tobacco Use Types Packs/Day Years Used Date Smoking Tobacco: Never Smokeless Tobacco: Never Alcohol Use Standard Drinks/Week Comments Yes 0 (1 standard drink = 0.6 oz pur e alcohol) Comments Unknown Sex and Gender Information Value Date Recorded Sex Assigned at Not on file Legal Sex Female 2:11 PM EST Gender Identity Not on file Sexual Orientation Not on file Obstetrics History Plan of Treatment Health Maintenance Due Date Last Done Comments DTaP,Tdap,and Td Vaccines (1 - Tdap) 2015 Hepatitis B Vaccines (1 of 3 - 19+ 3-dose series) 2015 Cervical Cancer Screening: P ap Smear 2017 HPV Vaccines (1 - 3-dose SCD M series) 2023 Depression Screening 08/08/2024 COVID-19 Vaccine ( - 2024-2 6 season) 2025 Influenza Vaccine (#1) 2025 RSV Immunization Adult Patie nts (1 - 1-dose 75+ series) 2071 HIB Vaccines Aged Out No longer eligi ble based on patient's age to complete this topic Hepatitis A Vaccines Aged Out No long er eligible based on patient's age to complete this topic IPV Vaccines Aged Out No longer eligi ble based on patient's age to complete this topic MMR Vaccines Aged Out No longer eligi ble based on patient's age to complete this topic Meningococcal ACWY Vaccine Aged Out N o longer eligible based on patient's age to complete this topic Meningococcal B Vaccine Aged Out No l onger eligible based on patient's age to complete this topic Pneumococcal Vaccine: Pediat rics (0 to 5 Years) and At-Risk Patients (6 to 49 Years) Aged Out No longer eligible b ased on patient's age to complete this topic RSV Immunization Patients Un albertina 20 months Aged Out No longer eligible b ased on patient's age to complete this topic Varicella Vaccines Aged Out No longer eligible based on patient's age to complete this topic
== END 2025-07-02 14:21 | disposition home or self-care (01) ==
LOC: HO.HCS 13:57
PROVIDERS: PCP Nurse Practitioner Family; Visit Provider Internal Medicine
DX: Z82.49 Family history of ischemic heart disease and other diseases of the circulatory system (principal)
CPT/HCPCS: 93010; 99203

== ENCOUNTER 2025-07-10 09:08 | Outpatient (AMB) | payer OTHER, SELFPAY ==
--- NOTE | 2025-07-10 09:13 | MHC.OFFVIS ---
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 She got in May and she stopped the control pills at that time at the end of the pack. Since then she has gotten her period at a normal time 28 day cycle it was a little heavier on the 2nd day she could not tell when she ovulated she is feeling well she got a tech up with aerospace engineer just because of family history of heart disease and everything checked out fine she is on her 2 medications for ADHD that work well together. She eats healthy and is very active with her two huskies. 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 Cognitive needs: No Hearing needs: No Vision needs: No Female Reproductive History Menstrual Age of Menarche: 11 Duration of menses: 3-5 days Date of last menstrual period: 06/22/25 control method: none Total pregnancies: 0 Date of last pap smear: 01/13/23 (negative pap smear) History of abnormal pap smear: No Physical Exam Vital Signs: Last Vital Signs BP 122/72 07/10/25 09:16 BMI result Body Mass Index 26.0 Const General: healthy appearing, comfortable, no acute distress, well developed and alert Nutritional Appearance: average body habitus Orientation/consciousness: patient oriented x3 Limitations: no limitations HEENT Head: Yes normocephalic Neck Neck: Yes normal visual inspection Chest Chest palpation & inspection: normal inspection of the chest Breast/axilla inspection: normal inspection of the breasts and normal inspection of the axillae Breast/axilla palpation: normal palpation of the breasts and normal palpation of the axillae Resp Effort & Inspection: normal respiratory effort GI Inspection: Yes normal to inspection, No Abdominal wall edema and No distended Palpation (GI): Soft to palpation and nontender Other: Normal external exam vagina pink and moist with very normal appearing whitish mucus consistent with luteal phase cervix nulliparous pink long closed mobile nontender uterus small midposition mobile nontender adnexa nontender nonenlarged good tone with Kegel. General: Yes bladder normal to palpation External Female Exam: normal external appearance and normal appearance of the urethra Speculum Exam - Vagina: normal appearance of the vagina, normal palpation and normal vaginal discharge Speculum Exam - Cervix: normal appearance of the cervix, normal palpation and nontender Bimanual exam- vagina & uterus: normal bimanual exam, normal palpation, uterine size normal, bladder normal to palpation, consistency normal, normal palpation, uterine mobility normal, uterine shape normal, No Cervical tenderness present, non-tender and no cervical motion tenderness Bimanual Exam- Adnexa, other: normal adnexae, no masses, normal and No adnexal tenderness Neuro General: patient oriented x3 Results Reviewed Results Reviewed: Gynecologic Cytology [id number] Name: Alma Andrews Age/Sex: 27/F Attending: Inés Fisher CNM : 1995 Submitted by: Inés Fisher CNM Copies to: Kath Grewal PARQUETRY LAYER MR #: [id number] Status: DEP REF Collected: 01/13/23 Location: [facility] Received: 01/17/23 Interpretation Satisfactory for evaluation. No endocervical cells seen. Negative for intraepithelial lesion or malignancy. Fungal organisms consistent with Cely species. Clinical Information LMP: 01/05/23 Previous PAP test: Unknown Material Received ThinPrep-Cervical Copies To Inés Fisher CNM [address] [place] [address] Dr. Baez [address] [place] [id number] Kath Grewal NP [address] [place] [address] Electronically Signed By: Aurora Combs 01/28/23 1547 The Pap Test is a screening procedure with the inherent possibility of both false negative and false positive results. Results should be interpreted in the context of historic and current clinical findings. Reliability of the Pap Test is enhanced by performing the test on a regular repetitive basis. Patient: Alma Andrews Age/Sex: 27/F MR#: [id number] Page 1 of 1 Assessment & Plan Assessment & Plan (1) Well woman exam with routine gynecological exam: Code(s): Z01.419 - Encounter for gynecological examination (general) (routine) without abnormal findings Category: Medical (2) Cervical cancer screening: Comment: Patient states she had abnormal cells a couple of years ago- no specifics; 01/13/2023 Pap is negative. 07/10/2025 Pap done as it is due in six-months... Code(s): Z12.4 - Encounter for screening for malignant neoplasm of cervix Category: Medical (3) Family history of breast cancer in female: Comment: (?paternal?) Aunt has breast cancer and is BRCA positive. She, her mother and sisters have been screened and are BRCA negative. Code(s): Z80.3 - Family history of malignant neoplasm of breast Category: Medical (4) JAIRO (generalized anxiety disorder): Code(s): F41.1 - Generalized anxiety disorder Category: Medical (5) Family history of cardiac arrest: Comment: dad and grandfather; patient had a cardiac consult... Code(s): Z82.49 - Family history of ischemic heart disease and other diseases of the circulatory system Category: Medical (6) Patient desires : Comment: Hoping for conception after december.... Code(s): Z31.9 - Encounter for procreative management, unspecified Category: Medical Plan -----Discussed in this visit the following: healthy balanced diet, regular and consistent exercise, getting recommended health screens, doing the best she can for her particular health concerns, kegel exercises, pap smear screening and followup recommendations, mammography screening and SBE, normal changes in cycles in her life stage--- .---I discussed with pt some of the optimal strategies for planning a , including achieving the best health she can before , (which she is in), including heathy balanced diet, exercise,( wt loss to ideal BMI if appropriate, avoiding toxic substances and medications, not smoking, and taking a multivitamin w folic acid daily. Any specific health concerns should be managed before seeking/ putting oneself at risk of pregancy. (--N/A) In addition I reviewed normal cycles, fertility awareness and signs of ovulation, and timing to avoid, and achieve when she feel ready. I also discussed emotional and relationship and support readiness before embarking on . Also reviewed the current state of availability of birthing services and the recommendation that I have that she seek continuity of care from the start of the where she believes she would like to deliver and [place] at [place] with the closure of [facility]'s birthing facilities and the closure of [facility] 's facilities from 2020. Discussed what we are able to provide. Suggested she considered doing her research now before she conceives so that she knows where she would like to go when the time comes. Offered prescription for vitamins with folic acid. Pap smear done as it is due in 6 months. RTC 1 year or when needed. Medications: New PNV,calcium 58-[id number] acid 27 mg iron- 1 mg ( Vitamins Plus Low Iron) 1 tab PO DAILY 100 tabs 1RF Coding Level of Care Code Est Pt Prev Care 18-39y(83356) Diagnoses Well woman exam with routine gynecological exam Z01.419 Cervical cancer screening Z12.4 Family history of breast cancer in female Z80.3 JAIRO (generalized anxiety disorder) F41.1 Family history of cardiac arrest Z82.49 Patient desires Z31.9
[2025-07-10 09:16] VITALS: BP 122/72; BMI 26.0
--- OUTSIDE RECORDS SUMMARY | 2025-07-10 09:49 | XMS_ITS | Clinical Summary ---
Author Organization [facility] Address [address] [place] [address] Care Team Providers Care Visiting Housekeeper Name Role Phone Unavailable Primary Care Provider [...]
== END 2025-07-10 10:05 | disposition home or self-care (01) ==
LOC: HO.HWSM 09:09
PROVIDERS: PCP Nurse Practitioner Family; Visit Provider Advanced Practice Midwife
DX: Z01.419 Encounter for gynecological examination (general) (routine) without abnormal findings (principal); F41.1 Generalized anxiety disorder; Z80.3 Family history of malignant neoplasm of breast; Z82.49 Family history of ischemic heart disease and other diseases of the circulatory system; Z31.9 Encounter for procreative management, unspecified
CPT/HCPCS: 99395; 99459

== ENCOUNTER 2025-07-10 09:08 | Outpatient (REF) | payer OTHER, SELFPAY | END 2025-07-10 09:09 | disposition home or self-care (01) | LOC: HO.LNP 09:08 | PROVIDERS: PCP Nurse Practitioner Family; Visit Provider Advanced Practice Midwife | DX: Z01.419 Encounter for gynecological examination (general) (routine) without abnormal findings (principal); F41.1 Generalized anxiety disorder; Z80.3 Family history of malignant neoplasm of breast; Z82.49 Family history of ischemic heart disease and other diseases of the circulatory system; Z31.9 Encounter for procreative management, unspecified | CPT/HCPCS: 88175 ==